=== PATIENT | female | born 1955 | race Caucasian/White ===

== ENCOUNTER 2017-05-12 17:42 | Inpatient (IN) | payer BC, MEDICAID, OTHER ==
[~2017-05-12] VITALS: Ht 157.5 cm; Wt 71.7 kg
[~2017-05-12 17:42] MED LIST: ASPI-664 PO; BENA40TA41 PO; CLOP75TA27 PO; LANT3I SC; METO25TA4 PO; NIT4 SL; NOV SC; PANT40TA3 PO; SIMV10TA PO
[2017-05-12] MEDS ORDERED: ASPIRIN 325 MG TAB PO STA (19:07)
[2017-05-12] MEDS ORDERED: NITROGLYCERIN (SL) 0.4 MG TAB SL PRN ×2 (19:30→23:30)
[2017-05-12] MEDS ORDERED: ONDANSETRON 4 MG INJ IV STA (19:50)
[2017-05-12 19:56] LABS: BASOPHILS % 0.3 % (0.0-2.0); EOSINOPHILS % 0.3 % (0.0-7.0); HEMOGLOBIN 12.4 g/dl (12.0-16.0); LYMPHOCYTES # 1.6 10^3/ul (0.8-2.9); LYMPHOCYTES % 11.5 % (15.0-51.0); MEAN CORPUSCULAR HEMOGLOBIN 28.6 pg (29.0-33.0); MEAN CORPUSCULAR HGB CONC 34.4 g/dl (32.0-37.0); MEAN CORPUSCULAR VOLUME 82.9 fl (82.0-101.0); MEAN PLATELET VOLUME 9.9 fl (7.4-10.4); MONOCYTE # 0.5 10^3/ul (0.3-0.9); MONOCYTES % 3.5 % (0.0-11.0); NEUTROPHILS % 83.8 % (39.0-77.0); PLATELET COUNT 272 10^3/UL (140-415); RED BLOOD COUNT 4.34 10^6/ul (4.20-5.40); RED CELL DISTRIBUTION WIDTH 12.9 % (11.5-14.5); WHITE BLOOD COUNT 13.9 10^3/ul (4.8-10.8)
[2017-05-12] MEDS ORDERED: LIDOCAINE/MYLANTA 40 ML BTL PO ONE (20:00)
[2017-05-12 20:14] LABS: ANION GAP 21 (8-16); BLOOD UREA NITROGEN 23 mg/dl (7-20); CALCIUM 9.7 mg/dl (8.4-10.2); CARBON DIOXIDE 26 mmol/L (21-31); CHLORIDE 98 mmol/L (97-110); CREATININE 0.75 mg/dl (0.44-1.00); GLUCOSE 307 mg/dl (70-220); POTASSIUM 5.2 mmol/L (3.5-5.1); SODIUM 140 mmol/L (135-144)
[2017-05-12 20:26] LABS: B-TYPE NATRIURETIC PEPTIDE 175 PG/ML (0-125); TROPONIN-I < 0.012 ng/ml (0.00-0.12)
--- NOTE | 2017-05-12 20:40 | RADRPT ---
PROCEDURE: XR Chest. CLINICAL INDICATION: Chest pain. TECHNIQUE: AP Portable chest. COMPARISON: Chest x-ray dated 03/13/2015 FINDINGS: The soft tissues and bones are remarkable for mild thoracic spondylosis and bilateral acromioclavicu lar osteoarthropathy. Calcified granuloma is noted in the left lung apex and the right paratracheal mediastinum. 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 No evidence for activ e disease is noted at this time.. No focal infiltrates, masses, or effusions are noted. The medias tinum and heart are remarkable for mild vascular calcifications of the thoracic aorta and mild cardi omegaly.. No pneumothorax is present. IMPRESSION: 1. No radiographic evidence for acute cardiopulmonary disease 2. 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 3. Mild cardiomegaly and atherosclerotic vascular disease RPTAT: HDC .Angelique Mcfarland MD, Date Time Electronically viewed and signed by .Angelique Mcfarland MD, on 05/12/2017 20:38 .C/
[2017-05-12] MEDS ORDERED: ATOR80TA75 PO (21:09)
[2017-05-12] MEDS ORDERED: AMLO-218 PO (21:09)
[2017-05-12] MEDS ORDERED: INSU100I12 SQ (21:10)
[2017-05-12] MEDS ORDERED: LANT3I SC (21:11)
[2017-05-12] MEDS ORDERED: TRAM1TAB51 PO (21:14)
[2017-05-12] MEDS ORDERED: KETOROLAC 30 MG INJ IV STA (22:38)
[2017-05-12 22:52] LABS: URINE BLOOD (Dip) POC 1+ (NEGATIVE)
[2017-05-12] MEDS ORDERED: INSULIN GLARGINE [LANtus] 3 ML PEN SC SCH (23:30)
[2017-05-12] MEDS ORDERED: DOCUSATE SODIUM 100 MG CAP PO PRN (23:30)
[2017-05-12] MEDS ORDERED: ACETAMINOPHEN 325 MG TAB PO PRN ×2 (23:30)
[2017-05-12] MEDS ORDERED: MAGNESIUM HYDROXIDE 30ML CUP PO PRN (23:30)
[2017-05-12] MEDS ORDERED: NACL 0.9% 3 ML SYG IV SCH (23:30)
[2017-05-12] MEDS ORDERED: traMADol-APAP 37.5-325 1 TAB PO PRN (23:30)
[2017-05-12] MEDS ORDERED: HYDROCODONE/APAP (5/325) TAB PO PRN (23:30)
[2017-05-12] MEDS ORDERED: BISACODYL 10 MG SUPP PR PRN (23:30)
[2017-05-12] MEDS ORDERED: ONDANSETRON 4 MG INJ IV PRN ×2 (23:30)
[2017-05-12] MEDS ORDERED: morphine 2 MG INJ IV PRN (23:30)
[2017-05-12] MEDS ORDERED: DEXTROSE 50% 50 ML SYRINGE IV PRN ×2 (23:45)
[2017-05-12] MEDS ORDERED: GLUCOSE GEL 15 GRAM TUBE BUCCAL PRN (23:45)
[2017-05-12] MEDS ORDERED: GLUCOSE GEL 15 GRAM TUBE PO PRN ×2 (23:45)
[2017-05-12] MEDS ORDERED: GLUCAGON 1 MG INJ IM PRN (23:45)
[2017-05-13] VITALS (11 sets, daily range): BP systolic 134–179; BP diastolic 70–82; PULSE 70–89; RESP 17–20; TEMP 97.8; Ht 157.5 cm; Wt 71.7 kg
--- NOTE | 2017-05-13 00:09 | ERA ---
ER Documentation Chief Complaint Date/Time DATE: 05/13/17 TIME: 00:04 Chief Complaint c/o chest pain radiating to jaw started 1.5 hrs ago. HPI This 61-year-old female comes in complaining of pressure-like chest pain that radiated to her left jaw that started 90 minutes prior to arrival. Pain was significant associated with some shortness of breath and nausea. She has diabetes, hypertension hypercholesterolemia. She does not smoke. ROS All systems reviewed and are negative except as per history of present illness. Medications Home Meds Reported Medications Tramadol HCl/Acetaminophen (Ultracet Tablet) 1 Each Tablet, 1 EACH PO DAILY Y for NEEDED, TAB 37.5-325MG 05/12/17 Insulin Glargine* (Lantus*) 100 Unit/Ml Soln, 50 UNIT SC QHS, #1 VIAL 05/12/17 Insulin Lispro (Humalog Kwikpen U-100) 100 Unit/1 Ml Insuln.pen, 12 UNIT SQ TID Y for NEEDED 05/12/17 Atorvastatin* (Atorvastatin*) 80 Mg Tablet, 80 MG PO QHS, #30 TAB 05/12/17 Amlodipine Besylate* (Norvasc*) 10 Mg Tablet, 10 MG PO DAILY, TAB 05/12/17 Clopidogrel Bisulfate (Clopidogrel) 75 Mg Tablet, 75 MG PO DAILY, TAB 03/13/15 Benazepril Hcl* (Benazepril Hcl*) 40 Mg Tablet, 40 MG PO DAILY, TAB 03/13/15 Aspirin* (Aspirin* (EC)) 81 Mg Tablet.dr, 81 MG PO DAILY, TAB 03/13/15 Discontinued Reported Medications Insulin Aspart* (Novolog Insulin Vial*) 100 U/Ml Vial, 10 UNIT SC WITH MEALS BEDTIME, VIAL 03/13/15 Insulin Glargine* (Lantus*) 100 Unit/Ml Soln, 50 UNIT SC HS, EA 03/13/15 Nitroglycerin* (Nitrostat*) 0.4 Mg Tab.subl, 0.4 MG SL Q5MIN Y for CHEST PAIN, BOTTLE 03/13/15 Metoprolol Tartrate* (Lopressor*) 25 Mg Tablet, 25 MG PO BID, TAB 03/13/15 Simvastatin* (Zocor*) 10 Mg Tablet, 10 MG PO QHS 03/07/10 Discontinued Scripts Pantoprazole* (Protonix*) 40 Mg Tablet., 40 MG PO DAILY for 30 Days, TAB Prov:SINDI FELIX MD 03/14/15 Allergies Allergies: Coded Allergies: No Known Allergy (Verified , 05/12/17) PMhx/Soc History of Surgery: No Anesthesia Reaction: No Hx Neurological Disorder: No Hx Respiratory Disorders: No Hx Cardiac Disorders: Yes (htn, high cholesterol, heart attack) Hx Psychiatric Problems: No Hx Miscellaneous Medical Probl: Yes (dm) Hx Alcohol Use: No Hx Substance Use: No Hx Tobacco Use: No Smoking Status: Never smoker Physical Exam Vitals Vital Signs Date Time Temp Pulse Resp B/P Pulse Ox O2 Delivery O2 Flow Rate FiO2 05/12/17 21:00 90 16 152/76 97 Room Air 05/12/17 19:29 98.2 89 22 194/86 98 Physical Exam Const: [] moderate distress Head: Atraumatic Eyes: Normal Conjunctiva ENT: Normal External Ears, Nose and Mouth. Neck: Full range of motion..~ No meningismus. Resp: Clear to auscultation bilaterally Cardio: Regular rate and rhythm, no murmurs Abd: Soft, non tender, non distended. Normal bowel sounds Skin: No petechiae or rashes Back: No midline or flank tenderness Ext: No cyanosis, or edema Neur: Awake and alert Psych: Normal Mood and Affect Result Diagram: 05/12/17193905/12/171939 Results 24 hrs Laboratory Tests Test 05/12/17 19:40 05/12/17 22:58 White Blood Count 13.910^3/ul Red Blood Count 4.3410^6/ul Hemoglobin 12.4g/dl Hematocrit 36.0% Mean Corpuscular Volume 82.9fl Mean Corpuscular Hemoglobin 28.6pg Mean Corpuscular Hemoglobin Concent 34.4g/dl Red Cell Distribution Width 12.9% Platelet Count 96849^3/UL Mean Platelet Volume 9.9fl Neutrophils % 83.8% Lymphocytes % 11.5% Monocytes % 3.5% Eosinophils % 0.3% Basophils % 0.3% Nucleated Red Blood Cells % 0.0/100WBC Neutrophils # (Manual) 11.610^3/ul Lymphocytes # 1.610^3/ul Monocytes # 0.510^3/ul Eosinophils # 0.010^3/ul Basophils # 0.010^3/ul Nucleated Red Blood Cells # 0.010^3/ul Sodium Level 140mmol/L Potassium Level 5.2mmol/L Chloride Level 98mmol/L Carbon Dioxide Level 26mmol/L Anion Gap 21 Blood Urea Nitrogen 23mg/dl Creatinine 0.75mg/dl Glucose Level 307mg/dl Calcium Level 9.7mg/dl Troponin I < 0.012ng/ml B-Type Natriuretic Peptide 175PG/ML Bedside Urine pH (LAB) 7.0 Bedside Urine Protein (LAB) 3+ Bedside Urine Glucose (UA) 0.50% Bedside Urine Ketones (LAB) Trace Bedside Urine Blood 1+ Bedside Urine Nitrite (LAB) Negative Bedside Urine Leukocyte Esterase (L Negative Current Medications Medications (Trade) Dose Ordered Sig/Christina Route PRN Reason Start Time Stop Time Status Last Admin Dose Admin Aspirin (Aspirin) 325 mg ONCE STAT PO 05/12/17 19:07 05/12/17 19:08 DC 05/12/17 19:49 Nitroglycerin (Nitroglycerin (Sl Tab) 0.4 Mg) 1 tab Q5M UP TO 3 DOSES PRN SL CHEST PAIN 05/12/17 19:30 Miscellaneous Medication (Gi Cocktail (2)) 40 ml ONCE ONCE PO 05/12/17 20:00 05/12/17 20:01 DC 05/12/17 20:06 Ondansetron HCl (Zofran Inj) 4 mg ONCE STAT IV 05/12/17 19:50 05/12/17 19:51 DC 05/12/17 20:06 Ketorolac Tromethamine (Toradol) 30 mg ONCE STAT IV 05/12/17 22:38 05/12/17 22:39 DC Ondansetron HCl (Zofran Inj) 4 mg ER BRIDGE PRN IV NAUSEA AND/OR VOMITING 05/12/17 23:30 05/13/17 23:29 Acetaminophen (Tylenol Tab) 650 mg ER BRIDGE PRN PO MILD PAIN/FEVER 05/12/17 23:30 05/13/17 23:29 IV Flush (NS 3 ml) 3 ml PER PROTOCOL IV 05/12/17 23:30 Ondansetron HCl (Zofran Inj) 4 mg Q6H PRN IV NAUSEA AND/OR VOMITING 05/12/17 23:30 Aspirin (Aspirin) 81 mg DAILY PO 05/13/17 09:00 Nitroglycerin (Nitroglycerin (Sl Tab) 0.4 Mg) 1 tab Q5M PRN SL CHEST PAIN 05/12/17 23:30 Acetaminophen (Tylenol Tab) 650 mg Q6H PRN PO PAIN LEVEL 1-3 OR FEVER 05/12/17 23:30 Acetaminophen/ Hydrocodone Bitart ([place] (5/325)) 1 tab Q6H PRN PO PAIN LEVEL 4-6 05/12/17 23:30 Morphine Sulfate (morphine) 2 mg Q4H PRN IV PAIN LEVEL 7-10 05/12/17 23:30 Docusate Sodium (Colace) 100 mg Q12H PRN PO CONSTIPATION 05/12/17 23:30 Magnesium Hydroxide (Milk Of Mag) 30 ml DAILY PRN PO CONSTIPATION 05/12/17 23:30 Bisacodyl (Dulcolax Supp) 10 mg DAILY PRN MS CONSTIPATION 05/12/17 23:30 Pantoprazole (Protonix Tab) 40 mg DAILY@06 PO 05/13/17 06:00 Enoxaparin Sodium (Lovenox) 40 mg DAILY SC 05/13/17 09:00 Amlodipine Besylate (Norvasc) 10 mg DAILY PO 05/13/17 09:00 05/13/17 09:00 DC Aspirin (Halfprin) 81 mg DAILY PO 05/13/17 09:00 05/13/17 09:00 DC Atorvastatin Calcium (Lipitor) 80 mg QHS PO 05/13/17 21:00 UNV Benazepril HCl (Lotensin) 40 mg DAILY PO 05/13/17 09:00 05/13/17 09:00 DC Clopidogrel Bisulfate (plaVIX) 75 mg DAILY PO 05/13/17 09:00 Tramadol HCl (Ultracet) 1 tab Q8 PRN PO NEEDED 05/12/17 23:30 UNV Benazepril HCl (Lotensin) 40 mg DAILY PO 05/12/17 23:30 Metoprolol Tartrate (Lopressor) 25 mg BID PO 05/12/17 23:30 Miscellaneous Information (* Miscellaneous Pharmacy Order) Discontinue current oral sulfonylur... ONCE ONCE XX 05/12/17 23:30 05/12/17 23:36 DC Diagnostic Test (Pha) (Accu-Chek) 1 ea 02 XX 05/13/17 02:00 Insulin Glargine (Lantus) 23 unit DAILY@20 SC 05/12/17 23:30 Insulin Aspart (Novolog Insulin Pen) 8 unit WITH MEALS WI 05/13/17 08:00 Miscellaneous Information (* Miscellaneous Pharmacy Order) HYPOGLYCEMIA PROTOCOL w... ONCE ONCE XX 05/12/17 23:30 05/12/17 23:36 DC Insulin Aspart (Novolog Insulin Pen) NOVOLOG *MODERATE* ALGORITHM WITH MEALS BEDTIME WI 05/13/17 08:00 Miscellaneous Information (* Miscellaneous Pharmacy Order) Discontinue all previ... ONCE ONCE XX 05/12/17 23:30 05/12/17 23:36 DC Miscellaneous Information 1 ea NOTE XX 05/12/17 23:45 Glucose (Glutose) 15 gm Q15M PRN PO DECREASED GLUCOSE 05/12/17 23:45 Glucose (Glutose) 22.5 gm Q15M PRN PO DECREASED GLUCOSE 05/12/17 23:45 Dextrose (D50w Syringe) 25 ml Q15M PRN IV DECREASED GLUCOSE 05/12/17 23:45 Dextrose (D50w Syringe) 50 ml Q15M PRN IV DECREASED GLUCOSE 05/12/17 23:45 Glucagon (Glucagen) 1 mg Q15M PRN IM DECREASED GLUCOSE 05/12/17 23:45 Glucose (Glutose) 15 gm Q15M PRN BUCCAL DECREASED GLUCOSE 05/12/17 23:45 Procedures/MDM 61-year-old female concerning story for acute coronary syndrome. Initial troponin is negative however her chest pain started 90 minutes prior to arrival not be expected to be elevated yet. Does have a white blood cell count without any signs of infection. She was given aspirin and nitroglycerin which helped mildly with her chest pain although it does still persist somewhat. Believe it is safest to admit her for further cardiac workup and trending of troponins at this point. I spoke with , who be admitting but requested a CTA of the chest be performed. I have ordered this study as well EKG interpretation: Normal sinus rhythm rate of 95, normal axis, no ST or T- wave changes concerning for acute ischemia, normal intervals. pharmaceutical operator interpretation normal sinus rhythm alternating sinus tachycardia , no arrhythmias Chest x-ray interpretation: I see no acute process, pneumothorax, no widened mediastinum, no fractures, no pulmonary edema. Radiologist mentions possible history of TB exposure. Departure Diagnosis: Primary Impression: Chest pain Additional Impression: Hyperglycemia due to type 2 diabetes mellitus Condition: ASTRID Velazquez DO May 13, 2017 00:09
[2017-05-13] MEDS ORDERED: SOD CHLORIDE 0.9% 100 ML ONE (00:21)
[2017-05-13] MEDS ORDERED: IOHEXOL 300MG/ML 150 ML BTL ONE (00:21)
[2017-05-13] MEDS ORDERED: SOD CHLORIDE 0.9% 1,000 ML IV ONE (00:30)
--- NOTE | 2017-05-13 01:35 | RADRPT ---
PROCEDURE: CTA Chest and pulmonary angiogram. CLINICAL INDICATION: Rule out pulmonary embolism, chest pain, dyspnea TECHNIQUE: CT scan of the chest and CT pulmonary angiogram was performed on a multidetector high-r esolution CT scanner. High-resolution thin slice coronal and sagittal imaging was obtained from the axial source images. No 3-D/maximum intensity projection reformatted imaging was performed. The p atient was examined following the intravenous administration of 100 cc of Omnipaque-300. The images were reviewed on a PACS workstation. The total exam CTDI equals 21.13 +12.39 mGy, and the total exam DLP equals 473.76 mGy-cm. One or more the following dose reduction techniques were utilized: Automated exposure control, adjus tment of the mA and / or kV according to patient's size, or use of iterative reconstruction techniqu e. COMPARISON: Chest x-ray of 05/12/2017 and CTA chest of 03/13/2015 FINDINGS: No filling defects suggestive of emboli are seen in main, lobar or segmental pulmonary arteries. Enl arged central pulmonary arteries suggestive of pulmonary arterial hypertension. Atherosclerotic diaz ges including calcification in thoracic aorta. No thoracic aortic aneurysm or dissection is seen. Co ronary artery calcification. No enlarged mediastinal lymph nodes are seen. Calcified lymph nodes in mediastinum and left hilum consistent with old granulomatous disease. No pleural effusion is seen. Mild dependent atelectasis in posterior lungs. Scattered linear atelectasis/fibrosis is seen in the lungs. Calcified granulomas in left upper lung lobe. Cardiomegaly. Degenerative changes in thoracic spine. IMPRESSION: No evidence of pulmonary emboli. Enlarged central pulmonary arteries suggestive of pulmonary arteria l hypertension. Cardiomegaly. Atherosclerosis including coronary artery calcification. Please see ab reginae. RPTAT: HJES .Nicolas Blake MD, MD Date Time Electronically viewed and signed by .Nicolas Blake MD, MD on 05/13/2017 01:35 .S/
[2017-05-13] MEDS ORDERED: ACCU-CHEK XX SCH (02:00)
[2017-05-13] MEDS: BENAZEPRIL 40 MG TAB PO SCH ×2 (02:13→08:34)
[2017-05-13] MEDS: METOPROLOL 25 MG TAB PO SCH ×2 (02:13→08:34)
[2017-05-13 02:31] LABS: CREATINE KINASE 92 IU/L (23-200)
[2017-05-13 03:05] LABS: CK-MB 2.44 ng/ml (0.0-2.4)
[2017-05-13 03:06] LABS: TROPONIN-I < 0.012 ng/ml (0.00-0.12)
[2017-05-13] MEDS ORDERED: PANTOPRAZOLE (EC) 40 MG TAB PO SCH (06:00)
[2017-05-13] MEDS: INSULIN ASPART [NOVOLOG] 3 ML PEN SC SCH ×6 (08:00→18:10)
[2017-05-13 08:06] LABS: BASOPHILS % 0.3 % (0.0-2.0); EOSINOPHILS # 0.2 10^3/ul (0.0-0.5); EOSINOPHILS % 1.1 % (0.0-7.0); HEMATOCRIT 34.9 % (37.0-47.0); HEMOGLOBIN 11.9 g/dl (12.0-16.0); LYMPHOCYTES # 2.2 10^3/ul (0.8-2.9); LYMPHOCYTES % 15.5 % (15.0-51.0); MEAN CORPUSCULAR HEMOGLOBIN 28.2 pg (29.0-33.0); MEAN CORPUSCULAR HGB CONC 34.1 g/dl (32.0-37.0); MEAN CORPUSCULAR VOLUME 82.7 fl (82.0-101.0); MEAN PLATELET VOLUME 10.1 fl (7.4-10.4); MONOCYTE # 0.8 10^3/ul (0.3-0.9); MONOCYTES % 5.8 % (0.0-11.0); NEUTROPHILS % 76.8 % (39.0-77.0); PLATELET COUNT 286 10^3/UL (140-415); RED BLOOD COUNT 4.22 10^6/ul (4.20-5.40); RED CELL DISTRIBUTION WIDTH 13.1 % (11.5-14.5); WHITE BLOOD COUNT 14.4 10^3/ul (4.8-10.8)
[2017-05-13 08:37] LABS: ALBUMIN 3.8 g/dl (3.3-4.9); ALBUMIN/GLOBULIN RATIO 1.26; BILIRUBIN,INDIRECT 0.5 mg/dl (0-1.1); BILIRUBIN,TOTAL 0.5 mg/dl (0.2-1.3); CALCIUM 9.7 mg/dl (8.4-10.2); CHOL/HDL RATIO 4.5 RATIO; CREATININE 0.76 mg/dl (0.44-1.00); TOTAL PROTEIN 6.8 g/dl (6.1-8.1)
[2017-05-13 08:51] LABS: CK-MB 2.76 ng/ml (0.0-2.4)
[2017-05-13 08:59] LABS: CREATINE KINASE 108 IU/L (23-200)
[2017-05-13] MEDS ORDERED: ASPIRIN 81 MG TAB PO SCH (09:00)
[2017-05-13] MEDS ORDERED: CLOPIDOGREL 75 MG TAB PO SCH (09:00)
[2017-05-13] MEDS ORDERED: BENAZEPRIL 40 MG TAB PO SCH (09:00)
[2017-05-13] MEDS ORDERED: ASPIRIN (EC) 81 MG TAB PO SCH (09:00)
[2017-05-13] MEDS ORDERED: ENOXAPARIN 40 MG/0.4 ML SYG SC SCH (09:00)
[2017-05-13] MEDS ORDERED: AMLODIPINE 10 MG TAB PO SCH (09:00)
[2017-05-13 09:09] LABS: TROPONIN-I < 0.012 ng/ml (0.00-0.12)
[2017-05-13] MEDS ORDERED: REGADENOSON 0.4 MG/5 ML SYG ONE (11:10)
--- NOTE | 2017-05-13 12:36 | CONS ---
Date/Time of Note Date/Time of Note DATE: 05/13/17 TIME: 12:30 Assessment/Plan Assessment/Plan Additional Assessment/Plan Chest pain and dizziness CAD with history of PCI to diagonal 2008 Cardiomyopathy with ejection fraction 50% March 2015 echocardiogram Diabetes, poorly controlled Hypertension, poorly controlled -Patient with symptoms of burning-like chest discomfort associated with dizziness and unsure if activity worsens or improve symptoms. ECG without any significant ischemic abnormalities and serial cardiac enzymes are negative. Patient also with uncontrolled hypertension. Given her history of coronary artery disease and risk factors, would proceed with nuclear cardiac perfusion study. Blood pressure on the higher end, would change PHIL inhibitor to twice daily dosing, restart Norvasc at lower dose, continue antiplatelet therapy and statin therapy and beta-kassie if no complication. Consultation Date/Type/Reason Admit Date/Time May 12, 2017 at 23:09 Type of Consultation: cv Reason for Consultation Chest pain and dizziness Hx of Present Illness This is a 61-year-old female with past medical history of coronary artery disease with PCI to the diagonal in 2008, hypertension, diabetes who presents with symptoms of chest pain and dizziness. Patient began having burning-like chest discomfort on the left side began yesterday. She is not sure if exertion improves or worsens her symptoms. Symptoms have been chronic all of yesterday and associated with dizziness and lightheadedness. She denies any shortness of breath or nausea. Because of worsening symptoms, she came to the emergency room for evaluation and care. At the current time she has mild chest discomfort which is burning like and intermittent dizziness. She denies any fevers or chills. 12 point review of systems was performed with all pertinent positives and negatives mentioned above and all else is negative Past Medical History Medical History: coronary artery disease, diabetes, high cholesterol, hypertension Past Surgical History Past Surgical Hx: angioplasty Family History Significant Family History: no pertinent family hx Social History Smoking Status: Never smoker Exam/Review of Systems Vital Signs Vitals Vital Signs Date Time Temp Pulse Resp B/P Pulse Ox O2 Delivery O2 Flow Rate FiO2 05/13/17 08:15 70 05/13/17 07:39 98.4 18 174/74 97 05/13/17 01:30 Room Air Intake and Output 05/12/17 05/12/17 05/13/17 15:00 23:00 07:00 Intake Total 5 ml Balance 5 ml Exam No apparent distress, following commands Constitutional: alert, oriented Head: normocephalic Neck: supple Respiratory: clear to auscultation, normal air movement, other (No wheezing) Cardiovascular: other (S1-S2 heard), regular rate and rhythm Gastrointestinal: bowel sounds, non-tender, soft Extremities: edema (Trace) Results Result Diagram: 05/13/17 0706 05/13/17 0706 Results 24 hrs Laboratory Tests Test 05/12/17 19:40 05/12/17 22:58 05/13/17 01:45 05/13/17 01:58 White Blood Count 13.9 H Red Blood Count 4.34 Hemoglobin 12.4 Hematocrit 36.0 L Mean Corpuscular Volume 82.9 Mean Corpuscular Hemoglobin 28.6 L Mean Corpuscular Hemoglobin Concent 34.4 Red Cell Distribution Width 12.9 Platelet Count 272 Mean Platelet Volume 9.9 # Neutrophils % 83.8 H Lymphocytes % 11.5 L Monocytes % 3.5 Eosinophils % 0.3 Basophils % 0.3 Nucleated Red Blood Cells % 0.0 Neutrophils # (Manual) 11.6 H Lymphocytes # 1.6 Monocytes # 0.5 Eosinophils # 0.0 Basophils # 0.0 Nucleated Red Blood Cells # 0.0 Sodium Level 140 Potassium Level 5.2 H Chloride Level 98 Carbon Dioxide Level 26 Anion Gap 21 H Blood Urea Nitrogen 23 H Creatinine 0.75 Glucose Level 307 H Calcium Level 9.7 Troponin I < 0.012 < 0.012 B-Type Natriuretic Peptide 175 H Bedside Urine pH (LAB) 7.0 Bedside Urine Protein (LAB) 3+ H Bedside Urine Glucose (UA) 0.50% H Bedside Urine Ketones (LAB) Trace H Bedside Urine Blood 1+ H Bedside Urine Nitrite (LAB) Negative Bedside Urine Leukocyte Esterase (L Negative Creatine Kinase 92 Creatine Kinase Index 2.7 Creatinine Kinase MB (Mass) 2.44 H Bedside Glucose 304 H Test 05/13/17 07:06 05/13/17 08:01 White Blood Count 14.4 H Red Blood Count 4.22 Hemoglobin 11.9 L Hematocrit 34.9 L Mean Corpuscular Volume 82.7 Mean Corpuscular Hemoglobin 28.2 L Mean Corpuscular Hemoglobin Concent 34.1 Red Cell Distribution Width 13.1 Platelet Count 286 Mean Platelet Volume 10.1 Neutrophils % 76.8 Lymphocytes % 15.5 Monocytes % 5.8 Eosinophils % 1.1 Basophils % 0.3 Nucleated Red Blood Cells % 0.0 Neutrophils # (Manual) 11.1 H Lymphocytes # 2.2 Monocytes # 0.8 Eosinophils # 0.2 Basophils # 0.0 Nucleated Red Blood Cells # 0.0 Sodium Level 143 Potassium Level 5.0 Chloride Level 102 Carbon Dioxide Level 27 Anion Gap 19 H Blood Urea Nitrogen 20 Creatinine 0.76 Glucose Level 220 Hemoglobin A1c 9.2 H Calcium Level 9.7 Magnesium Level 2.0 Total Bilirubin 0.5 Direct Bilirubin 0.00 Indirect Bilirubin 0.5 Aspartate Amino Transf (AST/SGOT) 21 Alanine Aminotransferase (ALT/SGPT) 35 Alkaline Phosphatase 127 H Creatine Kinase 108 Creatine Kinase Index 2.6 Creatinine Kinase MB (Mass) 2.76 H Troponin I < 0.012 Total Protein 6.8 Albumin 3.8 Globulin 3.00 Albumin/Globulin Ratio 1.26 Triglycerides Level 472 H Cholesterol Level 211 H LDL Cholesterol, Calculated 71 HDL Cholesterol 46 Cholesterol/HDL Ratio 4.5 Bedside Glucose 202 Medications Medications Current Medications Ondansetron HCl (Zofran Inj) 4 mg Q6H PRN IV NAUSEA AND/OR VOMITING; Start at 23:30 Aspirin (Aspirin) 81 mg DAILY PO Last administered on 05/13/17t 08:32; Admin Dose 81 MG; Start 05/13/17 at 09:00 Nitroglycerin (Nitroglycerin (Sl Tab) 0.4 Mg) 1 tab Q5M PRN SL CHEST PAIN; Start 05/12/17 at 23:30 Acetaminophen (Tylenol Tab) 650 mg Q6H PRN PO PAIN LEVEL 1-3 OR FEVER; Start at 23:30 Acetaminophen/ Hydrocodone Bitart ([place] (5/325)) 1 tab Q6H PRN PO PAIN LEVEL 4 -6; Start 05/12/17 at 23:30 Morphine Sulfate (morphine) 2 mg Q4H PRN IV PAIN LEVEL 7-10; Start 05/12/17 at 23:30 Docusate Sodium (Colace) 100 mg Q12H PRN PO CONSTIPATION; Start 05/12/17 at 23: 30 Magnesium Hydroxide (Milk Of Mag) 30 ml DAILY PRN PO CONSTIPATION; Start at 23:30 Bisacodyl (Dulcolax Supp) 10 mg DAILY PRN MS CONSTIPATION; Start 05/12/17 at 23 :30 Pantoprazole (Protonix Tab) 40 mg DAILY@06 PO Last administered on 05/13/17 05 :32; Admin Dose 40 MG; Start 05/13/17 at 06:00 Enoxaparin Sodium (Lovenox) 40 mg DAILY SC Last administered on 05/13/17 08:32 ; Admin Dose 40 MG; Start 05/13/17 at 09:00 Atorvastatin Calcium (Lipitor) 80 mg QHS PO ; Start 05/13/17 at 21:00 Clopidogrel Bisulfate (plaVIX) 75 mg DAILY PO Last administered on 05/13/17 08 :32; Admin Dose 75 MG; Start 05/13/17 at 09:00 Tramadol HCl (Ultracet) 1 tab Q8H PRN PO PAIN; Start 05/12/17 at 23:30 Benazepril HCl (Lotensin) 40 mg DAILY PO Last administered on 05/13/17 08:34; Admin Dose 40 MG; Start 05/12/17 at 23:30 Metoprolol Tartrate (Lopressor) 25 mg BID PO Last administered on 05/13/17 08: 34; Admin Dose 25 MG; Start 05/12/17 at 23:30 Diagnostic Test (Pha) (Accu-Chek) 1 ea 02 XX Last administered on 05/13/17 02: 11; Admin Dose 1 EA; Start 05/13/17 at 02:00 Insulin Glargine (Lantus) 23 unit DAILY@20 SC Last administered on 05/13/17 02 :19; Admin Dose 23 UNIT; Start 05/12/17 at 23:30 Miscellaneous Information 1 ea NOTE XX ; Start 05/12/17 at 23:45 Glucose (Glutose) 15 gm Q15M PRN PO DECREASED GLUCOSE; Start 05/12/17 at 23:45 Glucose (Glutose) 22.5 gm Q15M PRN PO DECREASED GLUCOSE; Start 05/12/17 at 23: 45 Dextrose (D50w Syringe) 25 ml Q15M PRN IV DECREASED GLUCOSE; Start 05/12/17 at 23:45 Dextrose (D50w Syringe) 50 ml Q15M PRN IV DECREASED GLUCOSE; Start 05/12/17 at 23:45 Glucagon (Glucagen) 1 mg Q15M PRN IM DECREASED GLUCOSE; Start 05/12/17 at 23:45 Glucose (Glutose) 15 gm Q15M PRN BUCCAL DECREASED GLUCOSE; Start 05/12/17 at 23 :45 Procedures Procedures ECG done today demonstrates sinus rhythm at 77 bpm, septal Q waves, nonspecific T-wave abnormalities Wilfredo Guerrero DO May 13, 2017 12:36
[2017-05-13] MEDS ORDERED: AMLODIPINE 5 MG TAB PO SCH (13:00)
--- NOTE | 2017-05-13 13:12 | RADRPT ---
Echocardiogram Report Patient Name: JUANJOSE MURPHY Gender: Female Date: 1955 Study Date: 13-May-2017 Community Development Specialist: Willy Gee [facility] Location: [id number] Ref. Physician: DAVID GARCIA Quality: Good Procedures: Transthoracic echocardiogram with complete 2D, M-Mode, and doppler examination. Indications: Chest Pain. 2D/M Mode Doppler Measurement Value Normal Ranges Measurement Value Normal Ranges LVIDd 2D 4.4 3.5 - 5.6 cm AV Peak Benito 1.3 m/sec LVIDs 2D 2.6 2.1 - 4.1 cm AV Peak PG 6.6 mmHg LVPWd 2D 0.9 0.6 - 1.1 cm LVOT Peak Benito 0.9 m/sec IVSd 2D 0.9 0.6 - 1.1 cm LVOT Peak PG 3.3 mmHg AoR Diam 2D 2.5 2.0 - 3.7 cm MV E Peak Benito 0.9 m/sec EDV 2D 89.8 cm3 MV A Peak Benito 1.0 m/sec ESV 2D 18.3 cm3 MV E/A 0.8 LA Dimen 2D 3.4 2.3 - 4.0 cm MV Decel Time 198 msec MV Decel Toole 4 MV E/A 0.8 Findings Left Ventricle: Lower limits of normal systolic function. Normal left ventricular cavity size. Normal left ventricular wall thickness. Ejection fraction is visually estimated at 50 %. Tissue Doppler/Mitral Doppler indices are consistent with impaired relaxation (Stage I diastolic dysfunction). Right Ventricle: Normal right ventricular size. Normal right ventricular systolic function. Left Atrium: The left atrium is normal in size. Right Atrium: The right atrium is normal in size. Mitral Valve: Mitral valve leaflets appear mildly thickened. Mild mitral annular calcification. Mild to moderate mitral valve regurgitation. Aortic Valve: Normal appearance of the aortic valve. No significant aortic stenosis or insufficiency. Tricuspid Valve: Normal appearance and function of the tricuspid valve with trace physiologic regurgitation. Pulmonic Valve: Normal pulmonic valve appearance. Pericardium: Normal pericardium with no significant pericardial effusion. Aorta: Normal aortic root. IVC: Normal size and normal respiratory collapse consistent with normal right atrial pressure. Conclusions 1.Lower limits of normal systolic function. Normal left ventricular cavity size. Normal left ventricular wall thickness. Ejection fraction is visually estimated at 50 %. Tissue Doppler/Mitral Doppler indices are consistent with impaired relaxation (Stage I diastolic dysfunction). 2.Normal right ventricular size. Normal right ventricular systolic function. 3.The left atrium is normal in size. 4.The right atrium is normal in size. 5.Mild to moderate mitral valve regurgitation. 6.No significant valvular stenosis or regurgitation seen of remaining visualized valves. 7.Normal pericardium with no significant pericardial effusion. Electronically Signed By: Wilfredo Guerrero 13-May-2017 13:11:47 -0700 Patient Name: JUANJOSE MURPHY Study Date: 13-May-2017 [id number]
--- NOTE | 2017-05-13 15:27 | HP ---
Date/Time of Note Date/Time of Note DATE: 05/13/17 TIME: 15:18 Assessment/Plan VTE Prophylaxis VTE Prophylaxis Intervention: LMWH Lines/Catheters IV C[facility]ter Type [facility]from [facility] Urinary Cath still in place: No Assessment/Plan Assessment/Plan 61-year-old female with: 1. Chest pain, burning quality, cardiac enzymes negative, sounds atypical but given risk factors she has had a stress test and a 2D echocardiogram. 2D echocardiogram stable, CTA chest negative Stress test results pending Pressure control, blood sugar control. If stress test negative patient will be discharged home with outpatient follow- up with primary care physician. 2. Hypertension: Continue current medications 3. Diabetes mellitus: Resume home medication at the time of discharge 4. Hyperlipidemia: Continue statin therapy 5. Osteoarthritis: [id number] pain medication as needed Prophylaxis: Lovenox for DVT prophylaxis, pump inhibitors for GI prophylaxis Disposition: Discharge home if stress test negative. HPI/ROS Admit Date/Time Admit Date/Time May 12, 2017 at 23:09 Hx of Present Illness Chief complaint: Chest pain History of presenting illness: This is a 61-year-old female with known history of coronary artery disease, hypertension, diabetes mellitus, hyperlipidemia, osteoarthritis who is status post angiogram with stenting in 2009, presented to the emergency department with complaint of burning chest pain that started yesterday. Patient described that is in the substernal area, it is a burning pain, nausea is reported. She also complains of dizziness, she was found to be hypertensive on presentation in the 190s. She has been ruled out for acute coronary syndrome, she had a stress test done today along with echocardiogram. Her echocardiogram is stable. Chest test reading is pending. Her chest pain is fairly atypical however she does have strong risk factors. If her stress test is negative she will be discharged home. ROS Constitutional: no complaints Eyes: no complaints Respiratory: no complaints Cardiovascular: chest pain, lightheadedness (Dizziness) Genitourinary: no complaints Musculoskeletal: no complaints Skin: no complaints Neurologic: no complaints Psychological: no complaints Immunologic: no complaints PMH/Family/Social Past Medical History Osteoarthritis Medical History: coronary artery disease, diabetes, high cholesterol, hypertension Past Surgical History Past Surgical Hx: angioplasty (With stenting in 2009) Family History Significant Family History: no pertinent family hx Social History Alcohol Use: none Smoking Status: Never smoker Drug Use: none Exam/Review of Systems Vital Signs Vitals Vital Signs Date Time Temp Pulse Resp B/P Pulse Ox O2 Delivery O2 Flow Rate FiO2 05/13/17 13:45 98.5 67 18 179/72 96 05/13/17 01:30 Room Air Intake and Output 05/12/17 05/12/17 05/13/17 15:00 23:00 07:00 Intake Total 5 ml Balance 5 ml Exam Constitutional: alert, oriented, well developed Respiratory: clear to auscultation, normal air movement Cardiovascular: nl pulses, regular rate and rhythm Gastrointestinal: non-tender, soft Musculoskeletal: nl extremities to inspection, nl gait and stance Extremities: normal pulses 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, nl mental status, nl speech, nl strength Labs Result Diagram: 05/13/17 0705/13/17 0706 Medications Medications Current Medications Ondansetron HCl (Zofran Inj) 4 mg Q6H PRN IV NAUSEA AND/OR VOMITING; Start at 23:30 Aspirin (Aspirin) 81 mg DAILY PO Last administered on 05/13/17 08:32; Admin Dose 81 MG; Start 05/13/17 at 09:00 Nitroglycerin (Nitroglycerin (Sl Tab) 0.4 Mg) 1 tab Q5M PRN SL CHEST PAIN; Start 05/12/17 at 23:30 Acetaminophen (Tylenol Tab) 650 mg Q6H PRN PO PAIN LEVEL 1-3 OR FEVER; Start at 23:30 Acetaminophen/ Hydrocodone Bitart (Dunbar (5/325)) 1 tab Q6H PRN PO PAIN LEVEL 4 -6; Start 05/12/17 at 23:30 Morphine Sulfate (morphine) 2 mg Q4H PRN IV PAIN LEVEL 7-10; Start 05/12/17 at 23:30 Docusate Sodium (Colace) 100 mg Q12H PRN PO CONSTIPATION; Start 05/12/17 at 23: 30 Magnesium Hydroxide (Milk Of Mag) 30 ml DAILY PRN PO CONSTIPATION; Start at 23:30 Bisacodyl (Dulcolax Supp) 10 mg DAILY PRN [place] CONSTIPATION; Start 05/12/17 at 23 :30 Pantoprazole (Protonix Tab) 40 mg DAILY@06 PO Last administered on 05/13/17 05 :32; Admin Dose 40 MG; Start 05/13/17 at 06:00 Enoxaparin Sodium (Lovenox) 40 mg DAILY SC Last administered on 05/13/17 08:32 ; Admin Dose 40 MG; Start 05/13/17 at 09:00 Atorvastatin Calcium (Lipitor) 80 mg QHS PO ; Start 05/13/17 at 21:00 Clopidogrel Bisulfate (plaVIX) 75 mg DAILY PO Last administered on 05/13/17 08 :32; Admin Dose 75 MG; Start 05/13/17 at 09:00 Tramadol HCl (Ultracet) 1 tab Q8H PRN PO PAIN; Start 05/12/17 at 23:30 Metoprolol Tartrate (Lopressor) 25 mg BID PO Last administered on 05/13/17 08: 34; Admin Dose 25 MG; Start 05/12/17 at 23:30 Diagnostic Test (Pha) (Accu-Chek) 1 ea 02 XX Last administered on 05/13/17 02: 11; Admin Dose 1 EA; Start 05/13/17 at 02:00 Insulin Glargine (Lantus) 23 unit DAILY@20 SC Last administered on 05/13/17 02 :19; Admin Dose 23 UNIT; Start 05/12/17 at 23:30 Miscellaneous Information 1 ea NOTE XX ; Start 05/12/17 at 23:45 Glucose (Glutose) 15 gm Q15M PRN PO DECREASED GLUCOSE; Start 05/12/17 at 23:45 Glucose (Glutose) 22.5 gm Q15M PRN PO DECREASED GLUCOSE; Start 05/12/17 at 23: 45 Dextrose (D50w Syringe) 25 ml Q15M PRN IV DECREASED GLUCOSE; Start 05/12/17 at 23:45 Dextrose (D50w Syringe) 50 ml Q15M PRN IV DECREASED GLUCOSE; Start 05/12/17 at 23:45 Glucagon (Glucagen) 1 mg Q15M PRN IM DECREASED GLUCOSE; Start 05/12/17 at 23:45 Glucose (Glutose) 15 gm Q15M PRN BUCCAL DECREASED GLUCOSE; Start 05/12/17 at 23 :45 Benazepril HCl (Lotensin) 20 mg BID PO ; Start 05/13/17 at 21:00 Amlodipine Besylate (Norvasc) 5 mg DAILY PO ; Start 05/13/17 at 13:00 Procedures Procedures PROCEDURE: CTA Chest and pulmonary angiogram. CLINICAL INDICATION: Rule out pulmonary embolism, chest pain, dyspnea TECHNIQUE: CT scan of the chest and CT pulmonary angiogram was performed on a multidetector high-resolution CT scanner. High-resolution thin slice coronal and sagittal imaging was obtained from the axial source images. No 3-D/ maximum intensity projection reformatted imaging was performed. The patient was examined following the intravenous administration of 100 cc of Omnipaque-300. The images were reviewed on a PACS workstation. The total exam CTDI equals 21.13 +12.39 mGy, and the total exam DLP equals 473.76 mGy-cm. One or more the following dose reduction techniques were utilized: Automated exposure control, adjustment of the mA and / or kV according to patient's size, or use of iterative reconstruction technique. COMPARISON: Chest x-ray of 05/12/2017 and CTA chest of 03/13/2015 FINDINGS: No filling defects suggestive of emboli are seen in main, lobar or segmental pulmonary arteries. Enlarged central pulmonary arteries suggestive of pulmonary arterial hypertension. Atherosclerotic changes including calcification in thoracic aorta. No thoracic aortic aneurysm or dissection is seen. Coronary artery calcification. No enlarged mediastinal lymph nodes are seen. Calcified lymph nodes in mediastinum and left hilum consistent with old granulomatous disease. No pleural effusion is seen. Mild dependent atelectasis in posterior lungs. Scattered linear atelectasis/fibrosis is seen in the lungs. Calcified granulomas in left upper lung lobe. Cardiomegaly. Degenerative changes in thoracic spine. IMPRESSION: No evidence of pulmonary emboli. Enlarged central pulmonary arteries suggestive of pulmonary arterial hypertension. Cardiomegaly. Atherosclerosis including coronary artery calcification. Please see above. RPTAT: HJES .Nicolas Blake MD, MD Date Time Electronically viewed and signed by .Nicolas Blake MD, on 05/13/2017 01:35 PROCEDURE: XR Chest. CLINICAL INDICATION: Chest pain. TECHNIQUE: AP Portable chest. COMPARISON: Chest x-ray dated 03/13/2015 FINDINGS: The soft tissues and bones are remarkable for mild thoracic spondylosis and bilateral acromioclavicular osteoarthropathy. Calcified granuloma is noted in the left lung apex and the right paratracheal mediastinum. 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 No evidence for active disease is noted at this time.. No focal infiltrates, masses, or effusions are noted. The mediastinum and heart are remarkable for mild vascular calcifications of the thoracic aorta and mild cardiomegaly.. No pneumothorax is present. IMPRESSION: 1. No radiographic evidence for acute cardiopulmonary disease 2. 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 3. Mild cardiomegaly and atherosclerotic vascular disease RPTAT: HDC .Angelique Mcfarland MD, MD Date Time Electronically viewed and signed by .Angelique Mcfarland MD, MD on 05/12/2017 20: 38 .Susy/ TY GARCIA May 13, 2017 15:27
--- NOTE | 2017-05-13 15:28 | PDOCDIS ---
Discharge Instructions CONDITION Patient Condition: Good HOME CARE INSTRUCTIONS: Diet Instructions: 2gm NaSpecial Diet: Diabetic diet ACTIVITY: Activity Restrictions: No Restrictions FOLLOW UP/APPOINTMENTS Follow-up Plan Follow-up with primary care physician within 1 week TY GARCIA May 13, 2017 15:28
[2017-05-13] MEDS ORDERED: PANT40TA4 PO (15:34)
[2017-05-13] MEDS ORDERED: METO-448 PO (15:34)
--- NOTE | 2017-05-13 16:44 | RADRPT ---
PROCEDURE: Nuclear medicine myocardial stress and rest scan. CLINICAL INDICATION: Chest pain. TECHNIQUE: The patient was stressed with 0.4 mg IV Lexiscan. 10 mCi technetium 99m Tetrofosmin ( Myoview) was administered rest. 30 mCi technetium 99m Tetrofosmin (Myoview) was administered duri ng stress. Images were obtained and reconstructed in the short axis, horizontal long axis, and vert ical long axis. Gated images were obtained and ejection fraction was calculated. COMPARISON: No prior study is available for comparison. 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 There is no reversibility at this site. There is no other fixed or reversible abnormality. There is no evidence of transient ischemic dilatation . There is akinesis of the anterior wall. Wall motion is otherwise normal. Ejection fraction at stress is 46%. IMPRESSION: 1. 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 No reversibility at this site. 2. No evidence of stress induced myocardial ischemia. 3. Ejection fraction at stress is 46%. RPTAT: QQ .Darin Duke MD, MD Date Time Electronically viewed and signed by .Darin Duke MD, on 05/13/2017 16:44 .R/
[2017-05-13] MEDS ORDERED: ATORVASTATIN 80 MG TAB PO SCH (21:00)
[2017-05-13] MEDS ORDERED: BENAZEPRIL 20 MG TAB PO SCH (21:00)
--- NOTE | 2017-05-14 14:58 | EN ---
Date/Time of Note Date/Time of Note DATE: 05/14/17 TIME: 14:56 Event Note Cardiology Cardiology Event Note Lexiscan nuclear perfusion study Date of procedure 05/13/2017 This is a 61-year-old female with history of CAD who presents with chest pain and shortness of breath Baseline ECG with septal Q waves, sinus rhythm at 77 bpm Baseline heart rate 77, based on blood pressure 198/87, peak blood pressure 198/ 87 Lexiscan was diminished as per protocol No significant ECG changes No significant arrhythmias seen ECG interpretation is nonischemic The nuclear portion will be interpreted by radiology colleagues. Wilfredo Guerrero DO May 14, 2017 14:58
== END 2017-05-13 18:50 | disposition home or self-care (01) | DRG 313 ==
LOC: E/R 17:42 → MS4 23:09
PROVIDERS: ADMIT Internal Medicine; ATTEND Internal Medicine
DX: R07.9 Chest pain, unspecified (principal); I25.10 Atherosclerotic heart disease of native coronary artery without angina pectoris; I42.9 Cardiomyopathy, unspecified; I10 Essential (primary) hypertension; E11.9 Type 2 diabetes mellitus without complications; E78.5 Hyperlipidemia, unspecified; M19.90 Unspecified osteoarthritis, unspecified site; R42 Dizziness and giddiness
CPT/HCPCS: 36415; 71010; 71275; 78452; 80048; 80053; 80061; 81003; 82550; 82553; 82962; 83036; 83735; 83880; 84484; 85025; 93005; 93017; 93306; 96374; A9500; A9505; J1815; J2405; J2785; J7030; Q9967

== ENCOUNTER 2019-03-11 12:56 | Emergency (ER) | payer OTHER ==
[~2019-03-11] VITALS: Ht 154.9 cm; Wt 67.4 kg
[~2019-03-11 12:56] MED LIST changes: +AMLO-218 PO; +ASPI-1046 PO; -ASPI-664 PO; +ATOR-2 PO; -BENA40TA41 PO; +BENA40TA56 PO; +INSU100I12 SQ; +METO-448 PO; -METO25TA4 PO; -NIT4 SL; -NOV SC; -PANT40TA3 PO; +PANT40TA4 PO; -SIMV10TA PO; +TRAM1TAB58 PO
[2019-03-11 13:05] VITALS: Ht 154.9 cm; Wt 67.4 kg
[2019-03-11] MEDS ORDERED: morphine 2 MG INJ IV STA (13:35)
[2019-03-11] MEDS ORDERED: ONDANSETRON 4 MG INJ IV STA (13:35)
[2019-03-11] MEDS ORDERED: NICARDipine HCL 30 MG CAPSULE PO ONE (14:00)
[2019-03-11] MEDS ORDERED: AMLO-147 PO (14:26)
[2019-03-11] MEDS ORDERED: ATOR40TA68 PO (14:27)
[2019-03-11] MEDS ORDERED: ASPI-817 PO (14:27)
[2019-03-11] MEDS ORDERED: CHOL200056 PO (14:28)
[2019-03-11] MEDS ORDERED: TRAM50TA PO (14:28)
[2019-03-11] MEDS ORDERED: GABA300C16 PO (14:28)
[2019-03-11] MEDS ORDERED: FURO40TA4 PO (14:29)
[2019-03-11] MEDS ORDERED: HYDR-3672 PO (14:29)
[2019-03-11] MEDS ORDERED: IBUP-1542 PO (14:30)
[2019-03-11] MEDS ORDERED: NOVMIX SC ×2 (14:31)
[2019-03-11] MEDS ORDERED: INSULIN LISPRO 100 UNIT/ML VIAL SC STA (16:39)
[2019-03-11] MEDS ORDERED: GLUCOSE GEL 15 GRAM TUBE BUCCAL PRN (17:00)
[2019-03-11] MEDS ORDERED: GLUCOSE GEL 15 GRAM TUBE PO PRN ×2 (17:00)
[2019-03-11] MEDS ORDERED: DEXTROSE 50% 50 ML SYRINGE IV PRN ×2 (17:00)
[2019-03-11] MEDS ORDERED: GLUCAGON 1 MG INJ IM PRN (17:00)
[2019-03-11] MEDS ORDERED: SOD CHLORIDE 0.9% 1,000 ML IV STA (17:21)
--- NOTE | 2019-03-11 18:45 | ERD ---
ER Documentation Chief Complaint Chief Complaint pt is bib self with c/o "tailbone pain " s/p fall ambulatory HPI This is a very pleasant 63-year-old female with a past medical history of hypertension the presents to the emergency department complaining of lower back pain for the past week. The patient indicated that she had a mechanical slip and fall and landed on her buttocks 1 week ago. She states the pain is exacerbated with movement. She however denies any changes in her bladder or bowel frequency. She has had no saddle anesthesia. She said no fevers or shaking no chills. She did not take any analgesic medication prior to arrival. She was also concerned that she states she has a history of diabetes in addition to her hypertension. She has been taking her blood pressure with a home cuff monitor and it has been reading with a systolic blood pressure of greater than 200mmHg for 1 day despite her taking all of her antihypertensive medications. She denies a headache. She denies any neck pain. She has no chest pain or pressure. ROS All systems reviewed and are negative except as per history of present illness. Medications Home Meds Reported Medications Insulin Aspart (Novolog Mix (70/30)) 100 Units/Ml Soln, 40 SC WITH DINNER, EA 03/11/19 Insulin Aspart (Novolog Mix (70/30)) 100 Units/Ml Soln, 50 SC WITH BREAKFAST, VIAL 03/11/19 Ibuprofen* (Ibuprofen*) 600 Mg Tablet, 600 MG PO Q6H, TAB 03/11/19 Furosemide* (Furosemide*) 40 Mg Tablet, 40 MG PO BID, TAB 03/11/19 Hydralazine Hcl* (Hydralazine Hcl*) 50 Mg Tab, 50 MG PO BID, #60 TAB 03/11/19 Gabapentin* (Gabapentin*) 300 Mg Capsule, 300 MG PO TID, #90 CAP 03/11/19 Cholecalciferol (Vitamin D3) (Vitamin D-3) 2,000 Unit Tablet, 2000 UNIT PO BID, TAB 03/11/19 Tramadol Hcl* (Ultram*) 50 Mg Tablet, 50 MG PO BID PRN for PAIN, TAB 03/11/19 Atorvastatin* (Atorvastatin*) 40 Mg Tablet, 40 MG PO QHS, #30 TAB 03/11/19 Aspirin* (Aspirin* EC) 81 Mg Tablet.dr, 81 MG PO DAILY, TAB 03/11/19 Amlodipine Besylate* (Amlodipine Besylate*) 10 Mg Tablet, 10 MG PO DAILY, #30 TAB 03/11/19 Discontinued Reported Medications Tramadol HCl/Acetaminophen (Ultracet Tablet) 1 Each Tablet, 1 EACH PO DAILY PRN for NEEDED, TAB 37.5-325MG 05/12/17 Insulin Glargine* (Lantus*) 100 Unit/Ml Soln, 50 UNIT SC QHS, #1 VIAL 05/12/17 Insulin Lispro (Humalog Kwikpen U-100) 100 Unit/1 Ml Insuln.pen, 12 UNIT SQ TID PRN for NEEDED 05/12/17 Atorvastatin* (Atorvastatin*) 80 Mg Tablet, 80 MG PO QHS, #30 TAB 05/12/17 Amlodipine Besylate* (Norvasc*) 10 Mg Tablet, 10 MG PO DAILY, TAB 05/12/17 Clopidogrel Bisulfate (Clopidogrel) 75 Mg Tablet, 75 MG PO DAILY, TAB 03/13/15 Benazepril Hcl* (Benazepril Hcl*) 40 Mg Tablet, 40 MG PO DAILY, TAB 03/13/15 Aspirin* (Aspirin* (EC)) 81 Mg Tablet.dr, 81 MG PO DAILY, TAB 03/13/15 Discontinued Scripts Pantoprazole* (Pantoprazole*) 40 Mg Tablet.dr, 40 MG PO DAILY@06 for 30 Days, 3 Refills Prov:TY GARCIA 05/13/17 Metoprolol Tartrate* (Lopressor*) 25 Mg Tab, 25 MG PO BID for 30 Days, TAB 3 Refills Prov:TY GARCIA 05/13/17 Allergies Allergies: Coded Allergies: No Known Allergy (Verified , 03/11/19) PMhx/Soc History of Surgery: No Anesthesia Reaction: No Hx Neurological Disorder: No Hx Respiratory Disorders: No Hx Cardiac Disorders: Yes (HTN, CO, High Cholesterol) Hx Psychiatric Problems: No Hx Miscellaneous Medical Probl: No Hx Alcohol Use: No Hx Substance Use: No Hx Tobacco Use: No Smoking Status: Never smoker Physical Exam Vitals Vital Signs Date Temp Pulse Resp B/P (MAP) Pulse Ox O2 O2 Flow FiO2 Time Delivery Rate 03/11/19 73 20 137/66 98 Room Air 18:11 (89) 03/11/19 91 20 157/71 95 Room Air 14:45 (99) 03/11/19 98.1 75 18 210/93 98 13:05 (132) Physical Exam Constitutional:Well-developed. Well-nourished. HEENT:Normocephalic. Atraumatic.Pupils were equal round reactive to light. Moist mucous membranes.No tonsillar exudates. Funduscopy exam shows sharp optic disks and venous pulsations are present Neck: No nuchal rigidity. No lymphadenopathy. No posterior cervical spine tenderness or step-offs. Respiratory: Not using accessory muscles of respiration.Lungs were clear to auscultation bilaterally. No rhonchi. No rales. No wheezing. Cardiovascular: Regular rate regular rhythm.No murmurs. No rubs were appreciated.S1, S2 normal. Distal pulses are palpable 2+ bilaterally. GI: Abdomen was soft. Nontender. Non Distended. No pulsatile abdominal masses or bruits. No rebound. No guarding. Bowel sounds were present and normal. Muscle skeletal: Full range of motion of both the upper and lower extremities bilaterally.Normal muscle tone.No assymetrical calf tenderness or swelling. Tenderness of the coccyx but no tenderness with palpation or percussion over the thoracic or lumbar spinous processes. Skin: No petechia, no purpura. No lesions on the palms or the soles of the feet. No maculopapular rash. NEURO: Patient was alert, awake, orientated x3.No facial droop. Gait observed and normal with no ataxia.Speech had regular rate and rhythm. No focal neurological deficits. Result Diagram: 03/11/19 1425 03/11/19 1357 Results 24 hrs Laboratory Tests Test 03/11/19 13:57 03/11/19 14:25 03/11/19 17:11 Prothrombin Time 11.8 Sec Prothrombin Time Ratio 0.9 INR International 0.86 Normalized Ratio Activated Partial Thromboplast 20.0 Sec Time Sodium Level 131 mmol/L Potassium Level 5.5 mmol/L Chloride Level 96 mmol/L Carbon Dioxide Level 25 mmol/L Anion Gap 10 Blood Urea Nitrogen 28 mg/dl Creatinine 1.07 mg/dl Est Glomerular Filtrat 52 mL/min Rate mL/min Glucose Level 408 mg/dl Calcium Level 8.6 mg/dl Total Bilirubin 0.5 mg/dl Direct Bilirubin 0.00 mg/dl Indirect Bilirubin 0.5 mg/dl Aspartate Amino Transf (AST/SGOT) 68 IU/L Alanine < 6 IU/L Aminotransferase (ALT/SGPT) Alkaline Phosphatase 150 IU/L Troponin I < 0.012 ng/ml Total Protein 7.9 g/dl Albumin 3.8 g/dl Globulin 4.10 g/dl Albumin/Globulin Ratio 0.92 Amylase Level 89 U/L Lipase 85 U/L White Blood Count 13.3 10^3/ul Red Blood Count 4.77 10^6/ul Hemoglobin 13.3 g/dl Hematocrit 37.4 % Mean Corpuscular Volume 78.4 fl Mean Corpuscular Hemoglobin 27.9 pg Mean Corpuscular 35.6 g/dl Hemoglobin Concent Red Cell Distribution Width 12.6 % Platelet Count 170 10^3/UL Mean Platelet Volume 12.5 fl Immature Granulocytes % 0.400 % Neutrophils % 71.9 % Lymphocytes % 20.5 % Monocytes % 5.1 % Eosinophils % 1.8 % Basophils % 0.3 % Nucleated Red Blood Cells % 0.0 /100WBC Immature Granulocytes # 0.050 10^3/ul Neutrophils # 9.5 10^3/ul Lymphocytes # 2.7 10^3/ul Monocytes # 0.7 10^3/ul Eosinophils # 0.2 10^3/ul Basophils # 0.0 10^3/ul Nucleated Red Blood Cells # 0.0 10^3/ul Bedside Glucose 215 mg/dL Current Medications Medications Dose Sig/Christina Start Time Status Last (Trade) Ordered Route PRN Stop Time Admin Dose Reason Admin Morphine 2 mg ONCE STAT 03/11/19 DC 03/11/19 Sulfate IV 13:35 14:02 (morphine) 03/11/19 13:38 Ondansetron 4 mg ONCE STAT 03/11/19 DC 03/11/19 HCl (Zofran IV 13:35 14:02 Inj) 03/11/19 13:38 Nicardipine 30 mg ONCE ONCE 03/11/19 DC 03/11/19 HCl PO 14:00 14:02 (Cardene) 03/11/19 14:01 Insulin 10 unit ONCE STAT 03/11/19 DC Human SC 16:39 Lispro 03/11/19 17:33 (Humalog) 1 ea NOTE XX 03/11/19 Miscellaneous 17:00 Information Glucose 15 gm Q15M PRN 03/11/19 Cancel (Glutose) PO DECREASED 17:00 GLUCOSE Glucose 22.5 gm Q15M PRN 03/11/19 Cancel (Glutose) PO DECREASED 17:00 GLUCOSE Dextrose 25 ml Q15M PRN 03/11/19 Cancel (D50w IV DECREASED 17:00 Syringe) GLUCOSE Dextrose 50 ml Q15M PRN 03/11/19 Cancel (D50w IV DECREASED 17:00 Syringe) GLUCOSE Glucagon 1 mg Q15M PRN 03/11/19 Cancel (Glucagen) IM DECREASED 17:00 GLUCOSE Glucose 15 gm Q15M PRN 03/11/19 Cancel (Glutose) BUCCAL 17:00 DECREASED GLUCOSE Sodium 1,000 ml @ Q1H STAT 03/11/19 DC 03/11/19 Chloride 1,000 mls/hr IV 17:21 17:27 03/11/19 18:20 Procedures/MDM The patient presented to the emergency department with back pain. My differential diagnosis included but was not limited to spinal origins of the pain such as fracture, osteomyelitis, epidural abscess, neoplasm, spondylolisht esis, discogenic, cauda equina syndrome or musculoligamentous. Nonspinal causes such as AAA, upper UTI, renal colic, aortic dissection, abdominal neoplasm were also considered as an etiology into their pain. However the patient did have a mechanical fall and was concerned with a compression fracture. Therefore I obtained radiographic imaging the patient's coccyx and there is no underlying fracture of her tailbone. This patient presented to the emergency department with severely elevated blood pressure. My differential diagnosis included but was not limited to conditions that could end-organ damage such as acute coronary syndrome, acute pulmonary edema, aortic dissection, subarachnoid hemorrhage, intracerebral hemorrhage, cerebral infarction, withdrawal syndromes from beta blockers, or states of catecholamine excess such as pheochromocytoma or drug intoxication. Ancillary lab work was obtained. There was no elevation in the BUN and creatinine to suggest acute renal failure. Electrolytes were abnormal with a serum sodium of 131 over the patient had no physical exam findings of severe hyponatremia. The patient's potassium was on the high end of normal at 5.5. The patient's BUN was 28 creatinine was 1.07. The patient was given IV fluid hydration. Electrolyte panel was repeated with improvement.. Cardiac enzyme was normal and the 12 lead EKG showed no acute ischemic changes or left ventricular hypertrophy. 12 Lead EKG tracing ordered and reviewed by myself showed: Normal sinus rhythm of 68 bpm and no arrhythmia. MS interval normal. QRS duration normal. No ST segment elevation. T wave inversion in the lateral leads V4 V5. No ST segment depression. No changes consistent with acute ischemia. The patient had hyperglycemia without ketosis. This was treated with IV fluids. Given that the patient had an absence of cerebral, ocular, cardiac or renal damage the hypertensive urgency was treated with oral agents in the emergency room with improvement of the patient's blood pressure. The patient likely appeared to be complaint with primary care physician and will follow up with their PCP in the next 24-48 hours. They were instructed to return to the emergency department at anytime if there is any worsening of their condition such as development of chest pain or a headache. They were instructed to resume previous medication regimen or initiate a suitable medication regimen under care of the PCP to enable proper monitoring for drug reactions. The patient was also informed on the adverse side effects and adverse drug interactions of the medications prescribed to them by myself. The patient gave informed consent to the prescription of the new medication. Observation Note: Time: 6 hours Family Hx: No Hypertension Evaluation: Multiple exams showed improving symptoms and no evidence of renal failure severe hyponatremia. I did feel that she will be safely discharged home. She will be given analgesic medication. The patient was discharged home in fair condition. They were instructed to return to the emergency department at any time if there was any worsening of their condition. The patient stated they would follow up with their PCP in the next 24-48 hours to initiate a suitable medication regimen under the care of their PCP as well as to allow their PCP to monitor any drug reactions. The patient was discharged home with prescriptions after they gave informed consent to the new medication. They were also fully informed by myself on the adverse effects and adverse drug interactions in order to provide adequate safeguards to prevent possible adverse reactions to medications. Departure Diagnosis: Primary Impression: Low back sprain Encounter type: initial encounter Qualified Codes: S33.5XXA - Sprain of ligaments of lumbar spine, initial encounter Additional Impressions: Hyperglycemia without ketosis Hypertensive urgency Condition: Fair ELMA CRONIN MD Mar 11, 2019 18:45
[2019-03-11] MEDS ORDERED: NAPR-985 PO (18:46)
[2019-03-11 19:10] VITALS: BP 129/77; PULSE 76; RESP 18
== END 2019-03-11 19:11 | disposition home or self-care (01) ==
LOC: E/R 12:56
DX: S33.5XXA Sprain of ligaments of lumbar spine, initial encounter (principal); I10 Essential (primary) hypertension; I25.2 Old myocardial infarction; I16.0 Hypertensive urgency; E11.65 Type 2 diabetes mellitus with hyperglycemia; W01.0XXA Fall on same level from slipping, tripping and stumbling without subsequent striking against object, initial encounter; Y92.9 Unspecified place or not applicable; Z79.82 Long term (current) use of aspirin; Z79.4 Long term (current) use of insulin
CPT/HCPCS: 72220; 80053; 82150; 82962; 83690; 84484; 85025; 85610; 85730; 93005; 96374; 96375; J1815; J2270; J2405; J7030; Z7502; Z7610

== ENCOUNTER 2019-04-12 21:37 | Inpatient (IN) | payer OTHER ==
[~2019-04-12] VITALS: Ht 154.9 cm; Wt 71.0 kg
[~2019-04-12 21:37] MED LIST changes: +AMLO-147 PO; -AMLO-218 PO; -ASPI-1046 PO; +ASPI-817 PO; -ATOR-2 PO; +ATOR40TA68 PO; -BENA40TA56 PO; +CHOL200056 PO; +CLOP75TA19 PO; -CLOP75TA27 PO; +FURO40TA4 PO; +GABA300C16 PO; +HYDR-3672 PO; +IBUP-1542 PO; -INSU100I12 SQ; -LANT3I SC; +METO-335 PO; -METO-448 PO; +NAPR-985 PO; +NOVMIX SC; -TRAM1TAB58 PO; +TRAM50TA PO
--- NOTE | 2019-04-12 21:53 | ERD ---
ER Documentation Chief Complaint Chief Complaint CP AND SOB HPI The patient is a 63-year-old female, presenting to the ER because of acute substernal chest pain that began about 7 PM yesterday, radiating to the head, denies similar symptoms previously, complains of epigastric abdominal pain today with constipation and intermittent cough. He denies fever, chills, neck pain, fever, diarrhea. She does not smoke nor drink Past medical history: Diabetes mellitus, hypertension, dyslipidemia, CAD Past surgical history: Stent PCI in 2008 ROS All systems reviewed and are negative except as per history of present illness. Medications Home Meds Active Scripts Naproxen* (Naprosyn*) 500 Mg Tablet, 500 MG PO BID PRN for PAIN AND/OR INFLAMMATION, #30 TAB Prov:ELMA CRONIN MD 03/11/19 Reported Medications Insulin Aspart (Novolog Mix (70/30)) 100 Units/Ml Soln, 40 SC WITH DINNER, EA 03/11/19 Insulin Aspart (Novolog Mix (70/30)) 100 Units/Ml Soln, 50 SC WITH BREAKFAST, VIAL 03/11/19 Ibuprofen* (Ibuprofen*) 600 Mg Tablet, 600 MG PO Q6H, TAB 03/11/19 Furosemide* (Furosemide*) 40 Mg Tablet, 40 MG PO BID, TAB 03/11/19 Hydralazine Hcl* (Hydralazine Hcl*) 50 Mg Tab, 50 MG PO BID, #60 TAB 03/11/19 Gabapentin* (Gabapentin*) 300 Mg Capsule, 300 MG PO TID, #90 CAP 03/11/19 Cholecalciferol (Vitamin D3) (Vitamin D-3) 2,000 Unit Tablet, 2000 UNIT PO BID, TAB 03/11/19 Tramadol Hcl* (Ultram*) 50 Mg Tablet, 50 MG PO BID PRN for PAIN, TAB 03/11/19 Atorvastatin* (Atorvastatin*) 40 Mg Tablet, 40 MG PO QHS, #30 TAB 03/11/19 Aspirin* (Aspirin* EC) 81 Mg Tablet.dr, 81 MG PO DAILY, TAB 03/11/19 Amlodipine Besylate* (Amlodipine Besylate*) 10 Mg Tablet, 10 MG PO DAILY, #30 TAB 03/11/19 Allergies Allergies: Coded Allergies: No Known Allergy (Verified , 03/11/19) PMhx/Soc History of Surgery: No Anesthesia Reaction: No Hx Neurological Disorder: No Hx Respiratory Disorders: No Hx Cardiac Disorders: Yes (HTN, OH, High Cholesterol) Hx Psychiatric Problems: No Hx Miscellaneous Medical Probl: No Hx Alcohol Use: No Hx Substance Use: No Hx Tobacco Use: No Physical Exam Vitals Vital Signs Date Temp Pulse Resp B/P (MAP) Pulse Ox O2 O2 Flow FiO2 Time Delivery Rate 04/12/19 98.1 71 14 146/65 96 Room Air 22:54 (92) 04/12/19 97.2 90 22 188/83 93 21:39 (118) Physical Exam Const: No acute distress. Head: Atraumatic. Eyes: Normal Conjunctiva. ENT: Normal External Ears, Nose and Mouth. Neck: Full range of motion. No meningismus. Resp: Clear to auscultation bilaterally. Cardio: Regular rate and rhythm. Abd: Soft, non distended, normal bowel sounds, no epigastric di scomfort, no right lower quadrant/right upper quadrant/rigidity/rebound or CVA tenderness Skin: No petechiae or rashes. Back: No midline or flank tenderness. Ext: No cyanosis, or edema. Neur: Awake and alert. No focal deficit Psych: Normal Mood and Affect. Result Diagram: 04/12/19215704/12/192157 Results 24 hrs Laboratory Tests Test 04/12/19 21:58 White Blood Count 16.3 10^3/ul Red Blood Count 4.61 10^6/ul Hemoglobin 12.4 g/dl Hematocrit 38.0 % Mean Corpuscular Volume 82.4 fl Mean Corpuscular Hemoglobin 26.9 pg Mean Corpuscular Hemoglobin Concent 32.6 g/dl Red Cell Distribution Width 13.6 % Platelet Count 344 10^3/UL Mean Platelet Volume 10.4 fl Immature Granulocytes % 0.600 % Neutrophils % 69.1 % Lymphocytes % 22.9 % Monocytes % 5.8 % Eosinophils % 1.4 % Basophils % 0.2 % Nucleated Red Blood Cells % 0.0 /100WBC Immature Granulocytes # 0.090 10^3/ul Neutrophils # 11.2 10^3/ul Lymphocytes # 3.7 10^3/ul Monocytes # 0.9 10^3/ul Eosinophils # 0.2 10^3/ul Basophils # 0.0 10^3/ul Nucleated Red Blood Cells # 0.0 10^3/ul Bedside Urine pH (LAB) 7.0 Bedside Urine Protein (LAB) 3+ Bedside Urine Glucose (UA) 0.1% Bedside Urine Ketones (LAB) Negative Bedside Urine Blood 1+ Bedside Urine Nitrite (LAB) Negative Bedside Urine Leukocyte Esterase (L Negative Sodium Level 141 mmol/L Potassium Level 4.5 mmol/L Chloride Level 106 mmol/L Carbon Dioxide Level 28 mmol/L Anion Gap 7 Blood Urea Nitrogen 25 mg/dl Creatinine 0.89 mg/dl Est Glomerular Filtrat Rate mL/min > 60 mL/min Glucose Level 180 mg/dl Calcium Level 9.6 mg/dl Total Bilirubin 0.4 mg/dl Direct Bilirubin 0.00 mg/dl Indirect Bilirubin 0.4 mg/dl Aspartate Amino Transf (AST/SGOT) 50 IU/L Alanine Aminotransferase (ALT/SGPT) 21 IU/L Alkaline Phosphatase 148 IU/L Troponin I 0.213 ng/ml B-Type Natriuretic Peptide 840 PG/ML Total Protein 7.5 g/dl Albumin 3.9 g/dl Globulin 3.60 g/dl Albumin/Globulin Ratio 1.08 Lipase 68 U/L Current Medications Medications Dose Sig/Christina Start Time Status Last (Trade) Ordered Route PRN Stop Time Admin Dose Reason Admin Aspirin 324 mg ONCE ONCE 04/12/19 (Aspirin) PO 23:30 04/12/19 23:31 1 inch ONCE ONCE 04/12/19 Nitroglycerin TD 23:30 04/12/19 23:31 (Nitroglyceri n 2% Oint) Procedures/[place] [address] Radiology Main Line: [phone] DIAGNOSTIC IMAGING REPORT Patient: JUANJOSE MURPHY : 1955 Age: 63 Sex: F MR #: [id number] DOS: 04/12/19 2204 Ordering MD: CYNTHIA SAVAGE MD Location: E/R Room/Bed: PROCEDURE: XR Chest. CLINICAL INDICATION: Chest pain TECHNIQUE: Single portable view of the chest was obtained COMPARISON: CR CHEST 03/13/2015; CR CHEST 07/24/2013; CR PORT CHEST 05/29/2009 FINDINGS: The trachea is midline. The cardiac silhouette and pulmonary vascularity are prominent. Coarse bilateral interstitial opacities are noted.. The costophrenic angles are sharp. There is atherosclerotic calcification of the aortic knob. IMPRESSION: 1. Cardiomegaly and mild central pulmonary vascular congestion. 2. Coarse bilateral interstitial opacities; chronic lung changes versus mild edema. RPTAT: AAPP Physician Riley Date Time Electronically viewed and signed by Tiara Rhoades Physician on 04/12/2019 22:48 JL/ CC: CYNTHIA SAVAGE MD [id number] [place] [address] Radiology Main Line: [phone] DIAGNOSTIC IMAGING REPORT Patient: JUANJOSE MURPHY : 1955 Age: 63 Sex: F MR #: [id number] DOS: 04/12/19 2204 Ordering MD: CYNTHIA SAVAGE MD Location: E/R Room/Bed: PROCEDURE: US LIMITED ABDOMEN RIGHT UPPER QUADRANT CLINICAL INDICATION: Abdominal pain TECHNIQUE: Multiple real-time images were acquired of the patient's right upper quadrant utilizing a high resolution transducer. COMPARISON: None FINDINGS: Pancreas is poorly visualized due to overlying bowel gas. The aorta and IVC are within normal limits. Hepatic morphology is within limits. There is normal homogeneous echotexture of the liver. The liver measures 18.6 cm in length. There is normal hepatic pedal flow of the portal vein. The gallbladder is visualized. There is a small 2 mm foci within the posterior wall of the gallbladder. No evidence of gallbladder wall thickening. The common bile duct is with normal limits measuring 3.5 mm. The right kidney measures 10.4 cm. The cortex and parenchymal with normal limits. No evidence of obstruction hydronephrosis. IMPRESSION: 1. Small gallbladder polyp versus nonshadowing stone. No gross sonographic evidence of inflammatory changes. 2. Common bile duct is within normal limits. 3. Mild hepatomegaly. RPTAT: AARR Physician Riley Date Time Electronically viewed and signed by Tiara Rhoades Physician on 04/12/2019 22:50 JL/ CC: CYNTHIA SAVAGE MD [id number] EK:12 PM read by emergency physician Rate/Rhythm: Normal Sinus Rhythm 75 beats/min QRS, ST, T-waves: No ST elevation, no T inversion LVH, lateral ST and T abnormality Impression: Abnormal EKG EK:15 PM read by emergency physician Rate/Rhythm: Normal Sinus Rhythm 67 beats/min QRS, ST, T-waves: No ST elevation, no T inversion LVH, lateral ST and T abnormality Impression: Abnormal EKG MEDICAL MAKING DECISION: The patient is a 63-year-old female, presenting with acute non-STEMI, acute hematuria, acute abdominal pain of unclear etiology, acute leukocytosis of unclear etiology She was treated with aspirin 324 mg p.o. and 1 inch of nitroglycerin ointment to the chest wall for acute STEMI with good response The differential diagnoses considered include but are not limited to acute coronary syndrome, acute myocardial infarction, pericarditis, pulmonary embolism, aortic dissection, pneumonia, pleural effusion, pneumothorax, GERD, chest wall pain, AAA, aortic dissection, cholecystitis, UTI, pneumonia. Departure Diagnosis: Primary Impression: Non-ST elevation OH (NSTEMI) Additional Impressions: Hematuria Leukocytosis Abnormal LFTs Condition: Stable Comments I discussed the findings with the patient. I notified the patient with Dr. Jade at 11:20p via [employer], who was made aware of the lab, the treatment, the patient condition. The patient is admitted to [facility] Disclaimer: Inadvertent spelling and grammatical errors are likely due to EHR/ dictation software use and do not reflect on the overall quality of patient care. Also, please note that the electronic time recorded on this note does not necessarily reflect the actual time of the patient encounter. CYNTHIA SAVAGE MD Apr 12, 2019 21:53
[2019-04-12] MEDS ORDERED: NITROGLYCERIN 2% 1 GM OINT PKT TD ONE (23:30)
[2019-04-12] MEDS ORDERED: ASPIRIN 81 MG TAB PO ONE (23:30)
[2019-04-13 01:35] VITALS: BP 175/79; PULSE 74; RESP 18
[2019-04-13 01:38] VITALS: Ht 154.9 cm; Wt 71.0 kg
[2019-04-13] MEDS ORDERED: traMADol 50 MG TAB PO PRN (02:30)
[2019-04-13 03:52] VITALS: BP 139/64; RESP 18
[2019-04-13] MEDS ORDERED: PANTOPRAZOLE (EC) 40 MG TAB PO SCH (06:00)
[2019-04-13 07:20] VITALS: BP 139/65; PULSE 72; RESP 17
[2019-04-13] MEDS ORDERED: CLOPIDOGREL 75 MG TAB PO SCH (09:00)
[2019-04-13] MEDS ORDERED: ASPIRIN (EC) 81 MG TAB PO SCH (09:00)
[2019-04-13] MEDS ORDERED: AMLODIPINE 10 MG TAB PO SCH (09:00)
[2019-04-13] MEDS ORDERED: METOPROLOL (XL) 25 MG TAB PO SCH (09:00)
[2019-04-13] MEDS ORDERED: FUROSEMIDE 40 MG TAB PO SCH (09:00)
[2019-04-13 11:21] VITALS: BP 149/66; PULSE 69; RESP 16
[2019-04-13] MEDS: GABAPENTIN 300 MG CAP PO SCH ×2 (11:24→13:00)
[2019-04-13] MEDS ORDERED: ENOXAPARIN 100 MG/ML SYG SC SCH (11:30)
--- NOTE | 2019-04-13 12:28 | RADRPT ---
Echocardiogram Report Patient Name: JUANJOSE MURPHYPatient ID: [id number] : 1955 (63y 11m)Study Date: 04/13/2019 7:34:19 AM Gender: FAccession #: [id number] Tech: Willy Gee [facility] Location: [facility] Ref.Physician: COLTEN SALAS Height(Cm): BSA: Weight(Kg): Quality: AdequateOrder Physician: COLTEN SALAS Account #: Procedures: Echocardiographic Report: Transthoracic echocardiogram with complete 2D, M-Mode, and doppler examination. Indications: NSTEMI. Measurements: 2D/M Mode Doppler Measurement Value Normal Range Measurement Value Normal Range LVIDd 2D 4.5 [ 3.8 - 5.2 ] cm AV Peak Benito 1.6 [ 100.0 - 170.0 ] cm/sec LVIDs 2D 3.1 [ 2.2 - 3.5 ] cm AV Peak PG 10.0 [ 2.0 - 9.0 ] mmHg LVPWd 2D 0.9 [ 0.6 - 0.9 ] cm LVOT Peak Benito 1.1 [ 70.0 - 110.0 ] cm/sec IVSd 2D 1.0 [ 0.6 - 0.9 ] cm LVOT Peak PG 4.0 [ 2.0 - 6.0 ] mmHg AoR Diam 2D 2.9 [ 2.3 - 3.1 ] cm MV E Peak Benito 0.9 [ 60.0 - 130.0 ] cm/sec EDV 2D 93.9 [ 46.0 - 106.0 ] ml MV A Peak Benito 1.0 [ 100.0 - 120.0 ] cm/sec ESV 2D 38.5 [ 14.0 - 42.0 ] ml MV E/A 0.9 [ 0.8 - 1.5 ] ratio EF 2D 59.0 [ 54.0 - 74.0 ] percent MV Decel Time 173 [ 104 - 258 ] msec LA Dimen 2D 3.0 [ 2.7 - 3.8 ] cm Lat E` Benito 0.0 [ 10.0 - 15.0 ] cm/sec Lateral E/E` 19.3 [ 1.0 - 2.0 ] ratio Med E` Benito 0.1 cm/sec MV E/A 0.9 [ 0.8 - 1.5 ] ratio Findings: Left Ventricle: Normal left ventricular cavity size. Normal left ventricular wall thickness. Mild left ventricular systolic dysfunction. Ejection fraction is visually estimated at 40-45 %. Tissue Doppler/Mitral Doppler indices are consistent with impaired relaxation (Stage I diastolic dysfunction). Right Ventricle: Normal right ventricular size. Normal right ventricular systolic function. Left Atrium: The left atrium is normal in size. Right Atrium: The right atrium is normal in size. Mitral Valve: Normal appearance of the mitral valve. Mild mitral annular calcification. Mild mitral valve regurgitation. Aortic Valve: Normal appearance of the aortic valve. No significant aortic stenosis or insufficiency. Tricuspid Valve: Normal appearance and function of the tricuspid valve with trace physiologic regurgitation. Pulmonic Valve: Pulmonic valve not well visualized. Pericardium: Normal pericardium with no significant pericardial effusion. Aorta: Normal aortic root. IVC: Normal size and normal respiratory collapse consistent with normal right atrial pressure. Conclusions: Normal left ventricular cavity size. Normal left ventricular wall thickness. Mild left ventricular systolic dysfunction. Ejection fraction is visually estimated at 40-45 %. Tissue Doppler/Mitral Doppler indices are consistent with impaired relaxation (Stage I diastolic dysfunction). Normal right ventricular size. Normal right ventricular systolic function. Mild mitral valve regurgitation. No significant valvular stenosis or regurgitation seen of remaining visualized valves. Normal pericardium with no significant pericardial effusion. Electronically Signed By: Wilfredo Guerrero 2019-04-13 12:28:04 PDT
--- NOTE | 2019-04-13 13:12 | HP ---
DATE OF ADMISSION: 04/13/2019 CHIEF COMPLAINT: Chest pain and shortness of breath. HISTORY OF PRESENT ILLNESS: A 63-year-old female with known history of coronary artery dise ase status post PCI and stent placement to diagonal artery in 2008 and multiple cardiac risk factors, presented to the emergency room with complaint of substernal chest pain which initially started abo ut 7:00 p.m. on the day prior to admission. The patient had on and off chest pain throughout the day . She also reports associated shortness of breath. No nausea, vomiting, or diaphoresis. The patien t was hospitalized in 12/2016. Lexiscan stress test at that time was unremarkable. An initial evalu ation in our facility showed initial troponin 0.213 and repeat troponin of 0.458 consistent with acut e non-STEMI. PAST MEDICAL HISTORY: 1. Coronary artery disease. 2. Status post percutaneous coronary intervention and stent placement to the diagonal artery in 2008 . 3. Hypertension. 4. Type 2 diabetes mellitus. 5. Hyperlipidemia. 6. Gastroesophageal reflux disease. MEDICATIONS PRIOR TO ADMISSION: 1. Plavix 75 mg daily. 2. Amlodipine 10 mg daily. 3. Lipitor 40 mg at bedtime. 4. Hydralazine 50 mg b.i.d. 5. Toprol-XL 25 mg daily. 6. Aspirin 81 mg daily. 7. Gabapentin 300 mg t.i.d. 8. Ibuprofen 600 mg every 6 hours as needed. 9. Tramadol as needed. 10. Lasix 40 mg b.i.d. 11. Protonix 40 mg daily. 12. NovoLog insulin 50 units subcutaneous with breakfast. 13. Vitamin D supplement. SOCIAL HISTORY: Patient lives at home. She denies tobacco or alcohol use. PHYSICAL EXAMINATION: GENERAL: Well-developed, well-nourished female who is in no apparent distress. VITAL SIGNS: Stable. She is afebrile. HEENT: Extraocular muscles intact. Pupils equal and reactive to light bilaterally. Sclerae are ani cteric. Oropharynx is clear and moist. NECK: Supple, no JVD, no carotid bruits. LUNGS: Clear to auscultation bilaterally. CARDIAC: Regular rate and rhythm. No murmurs, rubs or gallops. ABDOMEN: Soft, nontender, nondistended, normoactive bowel sounds. EXTREMITIES: No clubbing, cyanosis, or edema. NEUROLOGIC: Grossly nonfocal. A 12-lead EKG shows lateral ST and T wave changes. ASSESSMENT: 1. A 63-year-old female with known coronary artery disease presenting with chest pain since the nigh t prior to admission. The findings are consistent with acute infarction. 2. Status post percutaneous coronary intervention and stent placement to the diagonal artery in 2008 . 3. Hypertension. 4. Type 2 diabetes mellitus. 5. Hyperlipidemia. PLAN: Admit to telemetry. Continue home medications: Arrange transfer to [facility] or [facility] for cardiac catheterization. The manufacturing laborer at our facility is unavailable. Case was discussed with Dr. Guerrero. Dictated By: COLTEN SAN/JOSH Conf#: [id number] DID#: [id number] CC: CYNTHIA GUERRERO DO;*EndCC*
[2019-04-13] MEDS ORDERED: ATORVASTATIN 40 MG TAB PO SCH (21:00)
--- NOTE | 2019-04-15 04:52 | DS ---
DATE OF ADMISSION: 04/13/2019 DATE OF DISCHARGE: 04/13/2019 DISCHARGE DIAGNOSES: 1. A 63-year-old female with acute non-ST myocardial infarction. 2. Coronary artery disease, status post PCI and stent placement to the diagonal artery in 2008. 3. Hypertension. 4. Type 2 diabetes mellitus. 5. Hyperlipidemia. HOSPITAL COURSE: A 63-year-old female with known history of coronary artery disease and pre vious PCI and stent placement to the diagonal artery in 2008, presented to the emergency room with rockwell bsternal chest pain since the night prior to admission. The patient was diagnosed with acute non-DANIEL OH. She was evaluated by Dr. Dunne. A 2D echo showed ejection fraction of 40% to 45%, consistent w ith ischemic cardiomyopathy. The patient was transferred to [facility] in ord er to undergo coronary angiography. She was discharged in stable condition. Dictated By: COLTEN SAN/JOSH Conf#: [id number] DID#: [id number] CC: CYNTHIA DUNNE DO;*EndCC*
== END 2019-04-13 13:32 | disposition short-term general hospital (02) | DRG 282 ==
LOC: E/R 21:37 → INTOOBSV 23:25 → TEL 23:25 → OBSVTOIN 04-13 08:39 → TEL 04-13 09:04
PROVIDERS: ADMIT Internal Medicine; ATTEND Internal Medicine
DX: I21.4 Non-ST elevation (NSTEMI) myocardial infarction (principal); E11.9 Type 2 diabetes mellitus without complications; I25.10 Atherosclerotic heart disease of native coronary artery without angina pectoris; I10 Essential (primary) hypertension; E78.5 Hyperlipidemia, unspecified; I25.5 Ischemic cardiomyopathy; Z79.4 Long term (current) use of insulin; Z79.01 Long term (current) use of anticoagulants; Z79.02 Long term (current) use of antithrombotics/antiplatelets; Z95.5 Presence of coronary angioplasty implant and graft
CPT/HCPCS: 36415; 71045; 76705; 80053; 81003; 82550; 82553; 83690; 83880; 84484; 85025; 93005; 93306; 99217; G0378; J1650